=== PATIENT | male | born 1960 ===

== ENCOUNTER 2018-03-10 09:44 | Day surgery (SDC) | payer OTHER | END 2018-03-10 15:40 | disposition home or self-care (01) | LOC: AMB-ENDOS 09:44 → EDBD 13:30 → AMB-ENDOS 13:30 | DX: D12.3 Benign neoplasm of transverse colon (principal); K57.30 Diverticulosis of large intestine without perforation or abscess without bleeding; K64.8 Other hemorrhoids ==